=== PATIENT | female | born 1995 | race African-American/Black ===

== ENCOUNTER 2023-12-18 18:44 | Emergency (ER) | payer OTHER ==
--- NOTE | 2023-12-18 19:14 | ED ---
General Adult HPI - General Source: patient Mode of arrival: ambulatory Limitations: no limitations <Last García - Last Filed: 12/18/23 19:13> - General Source: RN notes reviewed <Sultana Espana - Last Filed: 12/19/23 00:02> - General Stated complaint: stuck tampon in vaginal canal Time Seen by Provider: 12/18/23 19:13 - History of Present Illness Initial comments: 28-year-old female sent from [place] who claims that she has had a tampon stuck inside her vaginal canal for the last 2 years. (Last García) 28-year-old female sent from [place] complaining that she may have a tampon stuck inside her vaginal canal for 2 months. States she was showering today and felt as though her vagina was swollen. Denies vaginal bleeding, abdominal pain, fever, chills, vomiting. She was recently tested for STDs and was negative. Denies urinary symptoms. Patient has Nexplanon, last period was 2 weeks ago. (Sultana Espana) - Related Data Allergies Allergy/AdvReac Type Severity Reaction Status Date / Time No Known Allergies Allergy Verified 12/18/23 20:17 Review of Systems ROS Other: All systems not noted in ROS Statement are negative. <Last García - Last Filed: 12/18/23 19:13> ROS Other: All systems not noted in ROS Statement are negative. <Sultana Espana - Last Filed: 12/19/23 00:02> ROS Statement: Those systems with pertinent positive or pertinent negative responses have been documented in the HPI. General Exam <Last García - Last Filed: 12/18/23 19:13> General appearance: alert, in no apparent distress Head exam: Present: atraumatic, normocephalic, normal inspection Eye exam: Present: normal appearance, PERRL, EOMI. Absent: scleral icterus, conjunctival injection, periorbital swelling GI/Abdominal exam: Present: soft, normal bowel sounds. Absent: distended, tenderness, guarding, rebound, rigid External exam: Present: normal external exam. Absent: erythema, swelling, lesions, lacerations Speculum exam: Present: normal speculum exam, other (TAVON Marks chaperoned pelvic examination. No foreign body visible in vaginal canal). Absent: erythema, vaginal discharge, cervical discharge, vaginal bleeding, foreign body Neurological exam: Present: alert, oriented X3 Psychiatric exam: Present: normal affect, normal mood Skin exam: Present: warm, dry, intact, normal color. Absent: rash <Sultana Espana - Last Filed: 12/19/23 00:02> - General Exam Comments Initial Comments: Visual Physical Exam Vital signs reviewed General: Well-appearing, nontoxic, no acute distress. Head: Normocephalic, atraumatic Eyes: PERRLA, EOMI ENT: Airway patent Chest: Nonlabored breathing Skin: No visual rash, normal skin tone Neuro: Alert and oriented 3 Musculoskeletal: No gross abnormalities (Last García) Course Vital Signs 12/18/23 12/18/23 20:11 22:11 Temperature 98.4 F 98.0 F Pulse Rate 85 79 Respiratory 18 17 Rate Blood Pressure 116/81 119/81 O2 Sat by Pulse 100 100 Oximetry Medical Decision Making <Last García - Last Filed: 12/18/23 19:13> <Sultana Espana - Last Filed: 12/19/23 00:02> - Medical Decision Making I performed the quick note portion of this visit, electronically signed Last García PA-C (Last García) Was pt. sent in by a medical professional or institution (KENDELL Álvarez, FABRIC INSPECTOR, urgent care, hospital, or detention...) When possible be specific @ -Sent by [facility] for possible tampon stuck in vaginal canal Did you speak to anyone other than the patient for history (EMS, parent, family, police, friend...)? What history was obtained from this source @ -No Did you review nursing and triage notes (agree or disagree)? Why? @ -I reviewed and agree with nursing and triage notes Were old charts reviewed (outside hosp., previous admission, EMS record, old EKG, old radiological studies, urgent care reports/EKG's, detention records)? Report findings @ -No old charts were reviewed Differential Diagnosis (chest pain, altered mental status, abdominal pain women, abdominal pain men, vaginal bleeding, weakness, fever, dyspnea, syncope, headache, dizziness, GI bleed, back pain, seizure, CVA, palpatations, mental health, musculoskeletal)? @ -Foreign body in vaginal canal, urinary tract infection, STD, orchitis, carcinoma EKG interpreted by me (3pts min.). @ -None X-rays interpreted by me (1pt min.). @ -None done CT interpreted by me (1pt min.). @ -None done U/S interpreted by me (1pt. min.). @ -None done What testing was considered but not performed or refused? (CT, X-rays, U/S, labs)? Why? @ -None What meds were considered but not given or refused? Why? @ -None Did you discuss the management of the patient with other professionals (professionals i.e. Dr., PA, FABRIC INSPECTOR, lab, RT, psych nurse, director social service, ur coordinator, teacher, postal delivery officer, rehabilitation case coordinator)? Give summary @ -No Was smoking cessation discussed for >3mins.? @ -No Was critical care preformed (if so, how long)? @ -No Were there social determinants of health that impacted care today? How? (Homelessness, low income, unemployed, alcoholism, drug addiction, transportation, low edu. Level, literacy, decrease access to med. care, fpc, rehab)? @ -No Was there de-escalation of care discussed even if they declined (Discuss DNR or withdrawal of care, Hospice)? DNR status @ -No What co-morbidities impacted this encounter? (DM, HTN, Smoking, COPD, CAD, Cancer, CVA, ARF, Chemo, Hep., AIDS, mental health diagnosis, sleep apnea, morbid obesity)? @ -None Was patient admitted / discharged? Hospital course, mention meds given and route, prescriptions, significant lab abnormalities, going to OR and other pertinent info. @ -Discharged. This is a 28-year-old female presenting from [place] with concern for tampon stuck in vaginal canal x 2 months. Denies fever, chills, abdominal pain, nausea, vomiting, vaginal bleeding. No red flag symptoms. Vital signs within acceptable limits. Pelvic examination performed with TAVON Marks as travel nurse. Pelvic examination was unremarkable, no foreign body visible in vaginal canal. Chlamydia and gonorrhea culture sent. Urinalysis remarkable for 1+ ketones, however otherwise unremarkable. Advised close follow-up with gynecology. Return precautions discussed and patient is agreeable to plan. Case was discussed with my ED attending Dr. Jensen. Patient discharged in stable condition. Undiagnosed new problem with uncertain prognosis? @ -No Drug Therapy requiring intensive monitoring for toxicity (Heparin, Nitro, Insulin, Cardizem)? @ -No Were any procedures done? @ -No Diagnosis/symptom? @ -Foreign body sensation in vaginal canal, normal physical examination Acute, or Chronic, or Acute on Chronic? @ -Acute Uncomplicated (without systemic symptoms) or Complicated (systemic symptoms)? @ -Uncomplicated Side effects of treatment? @ -No Exacerbation, Progression, or Severe Exacerbation? @ -No Poses a threat to life or bodily function? How? (Chest pain, [place], [place], pneumonia, PE, COPD, DKA, ARF, appy, cholecystitis, CVA, Diverticulitis, Homicidal, Suicidal, threat to staff... and all critical care pts) @ -No (Sultana Espana) - Lab Data Lab Results 12/18/23 Range/Units 23:23 Urine Color Colorless Urine Appearance Clear (Clear) Urine pH 6.0 (5.0-8.0) Ur Specific [place] 1.019 (1.001-1.035) Urine Protein Negative (Negative) Urine Glucose (UA) Negative (Negative) Urine Ketones 1+ H (Negative) Urine Blood Negative (Negative) Urine Nitrite Negative (Negative) Urine Bilirubin Negative (Negative) Urine Urobilinogen <2.0 (<2.0) mg/dL Ur Leukocyte Esterase Negative (Negative) Disposition <Last García - Last Filed: 12/18/23 19:13> Is patient prescribed a controlled substance at d/c from ED?: No Time of Disposition: 23:54 <Sultana Espana - Last Filed: 12/19/23 00:02> Clinical Impression: Sensation of foreign body, Normal physical examination Disposition: HOME SELF-CARE Condition: Stable Additional Instructions: Follow-up with gynecology for further evaluation. Chlamydia and gonorrhea cultures were sent out. You will be contacted if results return positive. Please return to the Emergency Department if symptoms worsen or any other concerns. Referrals: None,Stated [Primary Care Provider] - 1-2 days
[2023-12-18 23:40] LABS: Appearance,Urine Clear (Clear); Bilirubin,Urine Negative (Negative); Blood,Urine Negative (Negative); Color,Urine Colorless; Glucose,Urine (UA) Negative (Negative); Ketones,Urine 1+ (Negative); Leukocyte Esterase,Urine Negative (Negative); Nitrite,Urine Negative (Negative); Protein,Urine Negative (Negative); Specific Gravity,Urine 1.019 (1.001-1.035); Urobilinogen,Urine <2.0 mg/dL (<2.0)
[2023-12-19 00:17] VITALS: BP 126/82; PULSE 100; RESP 18; TEMP 98.1
[2023-12-19 15:32] LABS: N. gonorrhoeae,PCR Negative (Negative)
[2023-12-19 15:40] LABS: C. trachomatis,PCR Negative (Negative)
== END 2023-12-19 00:14 | disposition home or self-care (01) ==
LOC: EC 18:44
CPT/HCPCS: 81003; 87491; 87591; 99283